=== PATIENT | male | born 1980 | race Caucasian/White ===

== ENCOUNTER 2021-12-09 10:54 | Inpatient (IN) | payer BC, OTHER ==
[2021-12-09 11:08] VITALS: RESP 18; TEMP 98.1; BMI 29.0
[2021-12-09 12:52] LABS: BASO % 0.3 % (0-2.0); EOS % 0.3 % (0-4.5); HEMATOCRIT 42.4 % (35.4-49); HEMOGLOBIN 14.1 GM/dL (11.7-16.9); LYMPH % 21.3 % (8-40); MCH 27.2 pg (25.7-33.7); MCHC 33.2 g/dl (32.0-35.9); MEAN CELL VOLUME 82.1 fl (80-96); MEAN PLT VOLUME 7.1 fl (7.5-11.1); MONO % 9.7 % (3.8-10.2); NEUT % 68.4 % (42.8-82.8); PLATELET COUNT 294 10^3/uL (134-434); RBC 5.16 M/mm3 (4.00-5.60); RDW 13.2 % (11.9-15.9); WHITE BLOOD COUNT 14.3 K/mm3 (4.0-10.0)
[2021-12-09 13:13] LABS: CALCIUM 9.3 mg/dL (8.5-10.1)
[2021-12-09 13:14] LABS: ALBUMIN 3.5 g/dl (3.4-5.0); BLOOD UREA NITROGEN 16.3 mg/dL (7-18)
[2021-12-09 13:26] LABS: BILIRUBIN,TOTAL 0.7 mg/dL (0.2-1)
[2021-12-09] MEDS ORDERED: KETOROLAC TROMETHAMINE 30 MG/1 ML VIAL IVPUSH ONE (14:10)
[2021-12-09] MEDS ORDERED: ACETAMINOPHEN 1000 MG/100 ML BAG IVPB ONE (14:10)
[2021-12-09] MEDS ORDERED: PIPERACILLIN/TAZOB 3.375 GM 3.375 GM in DEXTROSE 5%-WATER - 50 ML IVPB ONE ×3 (14:11→18:58)
[2021-12-09] MEDS ORDERED: KETOROLAC TROMETHAMINE 30 MG/1 ML VIAL ONE (14:23)
[2021-12-09] MEDS ORDERED: ACETAMINOPHEN INJECTION 100 ML IVPB ONE (14:23)
[2021-12-09] MEDS ORDERED: methylPREDNISolone NA SUCC 125 MG/2 ML VIAL IVPB ONE (14:46)
[2021-12-09] MEDS ORDERED: SODIUM CHLORIDE 0.9% 500 ML INFUS.BAG IV ONE (14:48)
[2021-12-09] MEDS ORDERED: AZITHROMYCIN IVPB 500 MG in DEXTROSE 5%-WATER - 250 ML IVPB ONE (14:49)
[2021-12-09] MEDS ORDERED: methylPREDNISolone NA SUCC 125 MG/2 ML VIAL ONE (15:17)
[2021-12-09] MEDS ORDERED: PIPERACILLIN/TAZOB 3.375 GM 3.375 GM/50 ML BAG IVPB ONE (15:18)
[2021-12-09] MEDS ORDERED: AZITHROMYCIN IVPB 500 MG/250 ML BAG IVPB ONE (15:18)
[2021-12-10 02:27] VITALS: BP 122/74; PULSE 88
== END 2021-12-10 02:32 | disposition short-term general hospital (02) | DRG 153 ==
LOC: JER 10:54 → JERBED 14:55
PROVIDERS: ADMIT Family Medicine; ATTEND Family Medicine
DX: J36 Peritonsillar abscess (principal)
CPT/HCPCS: 36415; 70491-TC; 71046-TC-FY; 80053; 85025; 87040; 87070; 87205; 93005; 93010; 99285-25; C9803-CS; Q9967; U0003; U0005

== ENCOUNTER 2022-10-23 11:41 | Emergency (ER) | payer BC, OTHER ==
[2022-10-23 11:50] VITALS: BP 126/85; PULSE 75; RESP 19; TEMP 98; BMI 30.3
[2022-10-23] MEDS ORDERED: VANCOMYCIN 1,000 MG in DEXTROSE 5%-WATER - 250 ML IVPB ONE (13:17)
[2022-10-23] MEDS ORDERED: PIPERACILLIN/TAZOB 3.375 GM 3.375 GM in DEXTROSE 5%-WATER - 50 ML IVPB ONE (13:17)
[2022-10-23] MEDS ORDERED: VANCOMYCIN/WATER FOR INJ (PEG) 1,000 MG/200 ML BAG IVPB ONE (13:29)
[2022-10-23] MEDS ORDERED: PIPERACILLIN/TAZOB 3.375 GM 3.375 GM/50 ML BAG IVPB ONE (13:29)
[2022-10-23 14:10] LABS: BASO % 0.5 % (0-2.0); HEMOGLOBIN 15.5 GM/dL (11.7-16.9); LYMPH % 31.1 % (8-40); MCH 26.9 pg (25.7-33.7); MCHC 34.4 g/dl (32.0-35.9); MEAN CELL VOLUME 78.3 fl (80-96); MEAN PLT VOLUME 7.2 fl (7.5-11.1); MONO % 4.8 % (3.8-10.2); NEUT % 60.6 % (42.8-82.8); PLATELET COUNT 213 10^3/uL (134-434); RBC 5.75 M/mm3 (4.00-5.60); RDW 13.2 % (11.9-15.9); WHITE BLOOD COUNT 8.7 K/mm3 (4.0-10.0)
[2022-10-23 14:38] LABS: PH,URINE 6.5 (5.0-8.0); URINE APPEARANCE CLEAR; URINE BILIRUBIN NEGATIVE (NEGATIVE); URINE COLOR YELLOW; URINE GLUCOSE (UA) NEGATIVE (NEGATIVE); URINE KETONE NEGATIVE (NEGATIVE); URINE LEUK ESTERASE NEGATIVE (NEGATIVE); URINE NITRITE NEGATIVE (NEGATIVE); URINE PROTEIN NEGATIVE (NEGATIVE)
[2022-10-23 14:40] LABS: POTASSIUM 4.2 mmol/L (3.5-5.1)
[2022-10-23 14:43] LABS: ALBUMIN 4.1 g/dl (3.4-5.0); BLOOD UREA NITROGEN 12.4 mg/dL (7-18); CALCIUM 9.4 mg/dL (8.5-10.1)
[2022-10-23 14:47] LABS: BILIRUBIN,TOTAL 0.6 mg/dL (0.2-1); TOT PROT 7.6 g/dl (6.4-8.2)
== END 2022-10-23 17:42 | disposition home or self-care (01) ==
LOC: JER 11:41
DX: N50.812 Left testicular pain (principal); R21 Rash and other nonspecific skin eruption; N50.9 Disorder of male genital organs, unspecified; N50.811 Right testicular pain; L29.9 Pruritus, unspecified; L03.319 Cellulitis of trunk, unspecified
CPT/HCPCS: 36415; 76870-TC; 80053; 81003; 85025; 87040; 87077; 87086; 87491; 87591; 99284-25

== ENCOUNTER 2023-09-22 17:38 | Emergency (ER) | payer BC, OTHER ==
[2023-09-22 17:53] VITALS: BP 136/83; RESP 18; TEMP 98.6; BMI 42.0
[2023-09-22 19:58] LABS: EOS % 2.3 % (0-4.5); HEMATOCRIT 40.9 % (35.4-49); HEMOGLOBIN 14.4 GM/dL (11.7-16.9); LYMPH % 31.8 % (8-40); MCH 28.1 pg (25.7-33.7); MCHC 35.1 g/dl (32.0-35.9); MONO % 5.6 % (3.8-10.2); NEUT % 59.3 % (42.8-82.8); PLATELET COUNT 248 10^3/uL (134-434); RBC 5.12 M/mm3 (4.00-5.60); RDW 13.4 % (11.9-15.9); WHITE BLOOD COUNT 11.4 K/mm3 (4.0-10.0)
[2023-09-22 20:02] LABS: PH,URINE 6.5 (5.0-8.0); URINE APPEARANCE CLEAR; URINE BILIRUBIN NEGATIVE (NEGATIVE); URINE COLOR YELLOW; URINE GLUCOSE (UA) NEGATIVE (NEGATIVE); URINE KETONE NEGATIVE (NEGATIVE); URINE LEUK ESTERASE NEGATIVE (NEGATIVE); URINE NITRITE NEGATIVE (NEGATIVE); URINE PROTEIN NEGATIVE (NEGATIVE)
[2023-09-22 20:03] VITALS: PULSE 76
[2023-09-22 20:21] LABS: ALBUMIN 4.2 g/dl (3.4-5.0); BLOOD UREA NITROGEN 21.9 mg/dL (7-18); CALCIUM 9.4 mg/dL (8.5-10.1)
[2023-09-22 20:24] LABS: CREATININE 0.9 mg/dL (0.55-1.3)
[2023-09-22 20:26] LABS: BILIRUBIN,TOTAL 0.6 mg/dL (0.2-1); TOT PROT 7.6 g/dl (6.4-8.2)
[2023-09-22] MEDS ORDERED: LORATADINE 10 MG TABLET ONE (20:54)
[2023-09-22] MEDS: LORATADINE 10 MG TABLET PO ONE (20:56)
== END 2023-09-22 23:47 | disposition home or self-care (01) ==
LOC: JERFT 17:38 → JER 17:38
DX: H01.02B Squamous blepharitis left eye, upper and lower eyelids (principal)
CPT/HCPCS: 36415; 76870-TC; 80053; 81003; 85025; 87491; 87591; 99284-25